=== PATIENT | female | born 1960 | race Caucasian/White ===

== ENCOUNTER 2020-07-13 14:54 | Observation (INO) | payer OTHER ==
[2020-07-13] VITALS (9 sets, daily range): BP systolic 119–144; BP diastolic 61–71; PULSE 56–78; TEMP 98–99.6
[~2020-07-13] VITALS: Ht 182.9 cm; Wt 75.9 kg
[2020-07-13 15:34] LABS: BASO # 0.1 (0.0-0.2); BASO % 0.7 % (0.0-2.0); EOS # 0.1 (0.0-0.7); EOS % 1.5 % (0-4.0); GRAN # 5.9 (1.4-6.5); GRAN % 78.8 % (42.2-75.2); HEMOGLOBIN 10.9 g/dl (12.5-16.0); LYMPH # 0.8 (1.2-3.4); LYMPH % 10.8 % (20.0-51.0); MEAN CELL VOLUME 85 fl (80.0-100.0); MEAN CORPUSCULAR HEMOGLOBIN 26 pg (27.0-31.0); MEAN CORPUSCULAR HGB CONC 31 g/dl (33.0-37.0); MEAN PLATELET VOLUME 9.4 fl (7.4-10.4); MONO # 0.6 (0.1-0.6); MONO % 7.8 % (1.7-9.3); PLATELET COUNT 297 K/mm3 (130-400); REDCELL DISTRIBUTION WIDTH-CV 14.1 % (11.5-14.5)
[2020-07-13 15:35] LABS: HEMATOCRIT 35.5 % (37.0-47.0)
[2020-07-13 15:39] LABS: ALBUMIN 4.6 gm/dL (3.5-5.0); BILIRUBIN,TOTAL 0.5 mg/dL (0.0-1.0); C-REACTIVE PROTEIN 2.6 mg/dL (0.0-0.9); CALCIUM 9.7 mg/dL (8.4-10.2); CREATININE, serum 0.73 (0.52-1.25); POTASSIUM 3.6 mmol/L (3.4-5.0); TOTAL PROTEIN 8.4 gm/dL (6.4-8.2)
[2020-07-13 15:43] LABS: INR 1.1 (0.8-3.0); PROTHROMBIN TIME 12.3 SECONDS (9.7-12.8)
--- NOTE | 2020-07-13 18:00 | NUR ---
Pt arrived to room 305 she is A/O x4. Her breathing is even and unlabored on RA. Pt denies any SOB. No diarrhea. Denies a ST. Reports pressure to vaginal area. Scheduled Motrin administered. Strong DD, clear yellow urine present. IVF infusing to LAC. POC discussed with patient who verbalizes understanding. No needs at this time. Call light within reach.
[2020-07-14] VITALS (17 sets, daily range): BP systolic 110–141; BP diastolic 52–73; PULSE 56–75; TEMP 98–98.9
--- NOTE | 2020-07-14 04:04 | NUR ---
pt resting in bed, denies any pain at this time. States feeling pressure to lower abdomen area. IVF infusing to LAC, intact, dressing CDI. Strong cath intact, draining clear yellow urine. meds administered. Needs met. Call light within reach.
--- NOTE | 2020-07-14 07:08 | NUR ---
Report given to FANNIE Ca.
--- NOTE | 2020-07-14 08:20 | NUR ---
VAGINAL PAD CHANGED THIS MORNING, MODERATE DRAINAGE ON PAD. VITALS REVIEWED, ASSESSMENT PEFORMED, MEDICATIONS GIVEN, CONSENT FOR BLOOD SIGNED, PT UPDATED ON OB DOCTOR NOT VISITING UNTIL 1600 OR 1700, PT MENTIONING PAIN WHEN SHE MOVES DUE TO PULIDO TUBING. PULIDO DRAINING CLEAR YELLOW URINE. PT PLEASANT, AOX4, WATER BROUGHT IN TO PT, NO OTHER NEEDS.
[2020-07-14 08:39] LABS: HEMATOCRIT 28.2 % (37.0-47.0); HEMOGLOBIN 8.5 g/dl (12.5-16.0)
--- NOTE | 2020-07-14 12:05 | NUR ---
PT C/O LOWER ABD PAIN, FIRM UPON PALPATION, BP INC TO 140'S SYSTOLIC, DR. FONTENOT NOTIIFIED, PACKING CHECKED NO BREAKTHROUGH BLEEDING AT THIS TIME. PHYSICIAN STATED TO ADMINISTER PAIN MEDICATION IF PT WOULD LIKE.
--- NOTE | 2020-07-14 12:10 | NUR ---
PULIDO READJUSTED AND DRAINED 800. PT REPORTS PRESSURE IS RELIEVED.
--- NOTE | 2020-07-14 13:26 | NUR ---
Vp Director Of [employer] called patient and offered prayer and support.
--- NOTE | 2020-07-14 17:01 | NUR ---
VAGINAL PACKING REMOVED, PULIDO REMOVED, H&H TO BE DRAWN AFTER BLOOD IS FINISHED, DR. FONTENOT STATED IF PT NOT SATURATING A PAD AN HOUR SHE CAN BED DISCHARGED.
[2020-07-14 17:52] LABS: HEMATOCRIT 38.9 % (37.0-47.0)
--- NOTE | 2020-07-14 17:53 | NUR ---
PT PLEASANT,AOX4, BLEEDING FROM PACKING SIGHT BUT HAS NOT SATURATED PAD. BLOOD DONE, H&H DRAWN, WORKING ON DISCHARGE PAPERWORK.
[2020-07-14 17:55] LABS: HEMOGLOBIN 12.2 g/dl (12.5-16.0)
--- NOTE | 2020-07-14 18:33 | NUR ---
pt escorted out via wheelchair. iv removed, discharge education provided, no other needs.
== END 2020-07-14 18:41 | disposition home or self-care (01) ==
LOC: COL.ER 14:54 → MEDICAL 17:26
PROVIDERS: Family Medicine; Obstetrics & Gynecology; ADMIT Obstetrics & Gynecology
DX: C53.9 Malignant neoplasm of cervix uteri, unspecified (principal); N95.0 Postmenopausal bleeding; D64.9 Anemia, unspecified; U07.1 COVID-19
CPT/HCPCS: A4314; G0378; J1940; J2405; J2704; J3010; J7120; P9016; Q9967

== ENCOUNTER → 2020-09-19 | Outpatient (CLI) | payer OTHER | LOC: COL.RAD 08:30 | DX: C53.9 Malignant neoplasm of cervix uteri, unspecified (principal); Z98.51 Tubal ligation status | CPT/HCPCS: A9585 ==

== ENCOUNTER → 2021-03-22 | Outpatient (CLI) | payer OTHER | LOC: COL.RAD 06:47 | DX: C53.9 Malignant neoplasm of cervix uteri, unspecified (principal); Z98.890 Other specified postprocedural states | CPT/HCPCS: A9585 ==